=== PATIENT | male | born 1960 | race Caucasian/White ===

== ENCOUNTER → 2017-07-20 | Outpatient (CLI) | payer OTHER ==
[~2017-07-20] MED LIST: ASPEC325 PO; DOXY100C76 PO; HYDR2.5O TOP; INDO-22 PO; MELO7.5T5 PO; PRVHFAIN INH; SIMV20TA2 PO; TRAZ100T29 PO; ZNTT/150 PO
== END | disposition home or self-care (01) ==
LOC: C.LABSPEC 09:46
PROVIDERS: ATTEND Orthopaedic Surgery Sports Medicine
DX: T87.43 Infection of amputation stump, right lower extremity (principal); Y83.5 Amputation of limb(s) as the cause of abnormal reaction of the patient, or of later complication, without mention of misadventure at the time of the procedure

== ENCOUNTER 2017-08-12 10:38 | Inpatient (IN) | payer OTHER ==
[2017-08-08 09:35] VITALS: BMI 17.0
--- NOTE | 2017-08-08 10:12 | PAT Medication Instructions ---
Service Date Aug 08, 2017. Current Home Medication List Albuterol (Ventolin Hfa), 2 PUFF INH for prn Hydrocodone/Acetaminophen 10MG/325MG ([place] 10MG/325MG), 1-2 TABS PO Q6H PRN for Pain Indomethacin (Indocin), 25 MG PO for prn Ranitidine (Zantac), 150 MG PO DAILY PRN for prn Simvastatin (Zocor), 20 MG PO QPM Trazodone Hcl (Trazodone), 100 MG PO HS Medication Instructions For Your Scheduled Surgery - Hold the following medications the morning of surgery: Indomethacin (Indocin), 25 MG PO for prn - Take the following medications the morning of surgery with a sip of water: Albuterol (Ventolin Hfa), 2 PUFF INH for prn (use if needed; BRING TO HOSPITAL) Hydrocodone/Acetaminophen 10MG/325MG ([place] 10MG/325MG), 1-2 TABS PO Q6H PRN for Pain (may take if needed up to 4 hours prior to surgery) Ranitidine (Zantac), 150 MG PO DAILY PRN - Take the following medications as scheduled the night before surgery: Albuterol (Ventolin Hfa), 2 PUFF INH for prn Hydrocodone/Acetaminophen 10MG/325MG ([place] 10MG/325MG), 1-2 TABS PO Q6H PRN for Pain Simvastatin (Zocor), 20 MG PO QPM Trazodone Hcl (Trazodone), 100 MG PO HS If you have any questions please call us at [phone] or [phone] or [phone]
[2017-08-08 11:25] LABS: BASO % 0.4 %; BASO ABS # 0.03 K/uL (0-0.2); COMPLETE YES; EOS % 2.3 %; HEMATOCRIT 42.3 % (42-52); IG% 0.2 %; LYMPH % 33.6 %; LYMPH ABS # 2.81 K/uL (1.2-3.4); MEAN CELL VOLUME 87.4 fL (80-100); MEAN CORPUSCULAR HEMOGLOBIN 30.6 pg (25-34); MONO % 8.4 %; NEUT % 55.1 %; PLATELET COUNT 230 K/uL (130-400); RED BLOOD COUNT 4.84 M/uL (4.7-6.1); WHITE BLOOD COUNT 8.37 K/uL (4.8-10.8)
[2017-08-08 11:35] LABS: PARTIAL THROMBOPLASTIN RATIO 1.1; PROTHROMBIN TIME (PATIENT) 10.4 SECONDS (9.0-12.0)
[2017-08-08 11:39] LABS: BUN/CREATININE RATIO 14.4 (10-20); CALCIUM 9.1 mg/dl (8.5-10.1); CREATININE 0.73 mg/dl (0.60-1.40); POTASSIUM 4.6 mmol/L (3.5-5.1)
[2017-08-08 11:40] LABS: ESTIMATED AVERAGE GLUCOSE 117 mg/dl; HA1C FLAG Normal (Normal)
[2017-08-08 11:40] LABS: URINE APPEARANCE CLEAR (CLEAR); URINE BILIRUBIN NEG (NEG); URINE COLOR YELLOW; URINE EPITHELIAL CELL AUTO 0-5 /lpf (0-5); URINE NITRITE NEG (NEG); URINE SPECIFIC GRAVITY 1.017 (1.000-1.030); UROBILINOGEN NEG (NEG)
[2017-08-08 11:43] LABS: MANUAL MICROSCOPIC REQUIRED? NO; REVIEW REQ? NO
[~2017-08-12] VITALS: Ht 175.3 cm; Wt 54.1 kg
[2017-08-12] VITALS (7 sets, daily range): BP systolic 129–181; BP diastolic 70–91; PULSE 51–75; TEMP 36.6–37.3; O2SAT 93–96; Ht 175.3 cm; Wt 54.1 kg
--- NOTE | 2017-08-12 08:12 | History and Physical ---
History & Physical Date Aug 12, 2017. Chief Complaint Right BKA pain History of Present Illness The patient is a 56 year old male with complaints of right BKA pain and ulceration. He was treated conservatively but failed conservative management. An MRI noted changes in the distal tibia at the stump. He is now being set up for surgical tx. Past Medical/Surgical History Medical Problems: (1) Chronic osteomyelitis, lower leg Surgical Problems: (1) Below knee amputation status Allergies Coded Allergies: Bupropion (Unverified Allergy, Unknown, per PCP note , 08/08/17) CI Pigment Blue 63 (Unverified Allergy, Unknown, per PCP note , 08/08/17) Duloxetine (Unverified Allergy, Unknown, per PCP note , 08/08/17) Fentanyl (Unverified Allergy, Unknown, "turns skin black", 08/08/17) rash to fentanlyl patches Flu Virus Vaccine (Unverified Allergy, Unknown, per PCP note , 08/08/17) Fluoxetine (Unverified Allergy, Unknown, per PCP note , 08/08/17) Fluticasone (Unverified Allergy, Unknown, per PCP note , 07/13/16) Gabapentin (Unverified Allergy, Unknown, per PCP note , 07/13/16) Methylphenidate (Unverified Allergy, Unknown, per PCP note , 07/13/16) Morphine (Unverified Allergy, Unknown, rash on hands , 07/13/16) hand rash from pills Oxycodone (Unverified Allergy, Unknown, per PCP note , 07/13/16) Quetiapine (Unverified Allergy, Unknown, per PCP note , 07/13/16) Salmeterol (Unverified Allergy, Unknown, per PCP note , 07/13/16) Valproic Acid (Unverified Allergy, Unknown, per PCP note , 07/13/16) Venlafaxine (Unverified Allergy, Unknown, per PCP note , 07/13/16) Home Medications Scheduled Simvastatin (Zocor), 20 MG PO QPM Trazodone Hcl (Trazodone), 100 MG PO HS Scheduled PRN Albuterol (Ventolin Hfa), 2 PUFF INH for prn Hydrocodone/Acetaminophen 10MG/325MG ([place] 10MG/325MG), 1-2 TABS PO Q6H PRN for Pain Indomethacin (Indocin), 25 MG PO for prn Ranitidine (Zantac), 150 MG PO DAILY PRN for prn Physical Examination Skin: warm/dry, no rash, + pertinent finding (Right BKA stump ulceration) Eyes: normal inspection ENT: normal ENT inspection Head: normocephalic, atraumatic Neck: supple, no adenopathy, trachea midline Respiratory/Chest: lungs clear, normal breath sounds (Decreased breath sounds throughout), no respiratory distress Cardiovascular: regular rate, rhythm, no murmur Abdomen / GI: normal bowel sounds, non tender Extremities: + pertinent finding (Right BKA with ulceration and erythema. + Swelling. Tender to palpation.) Neurologic/Psych: alert, oriented x 3 Diagnosis Right BKA ulceration Right BKA osteomyelitis of the tibia Plan of Treatment Recommend an I & D of the right BKA, revision BKA with implantation of antibiotic laden Stimulan beads. All potential risks, benefits, complications, alternatives, and rehab have been discussed and he wishes to proceed. He will be scheduled for 08.12.17.
[~2017-08-12 10:38] MED LIST changes: -ASPEC325 PO; +CEFAZOLIN 2000MG IV PUSH 10 ML IV SCH; -DOXY100C76 PO; +HYDR-4079 PO; -HYDR2.5O TOP; +LACTATED RINGER'S 1000ML 1,000 ML IV SCH; -MELO7.5T5 PO
--- NOTE | 2017-08-12 11:29 | History & Physical Bridge Note ---
H&P Re-Evaluation Bridge Note: I have examined the patient, reviewed the History & Physical and in the interval since the performance of the History & Physical I have noted the following changes of clinical significance: No changes noted
[2017-08-12] MEDS ORDERED: PROPOFOL IV EMULSION 10 MG/ML 20 ML VIAL IV ONE (11:32)
[2017-08-12] MEDS ORDERED: MIDAZOLAM HCL 1 MG/ML 2ML VIAL ONE (11:32)
[2017-08-12] MEDS ORDERED: LIDOCAINE HCL 2% 2 ML VIAL (20MG/ML) ONE (11:32)
[2017-08-12] MEDS ORDERED: FENTANYL CITRATE INJ 50 MCG/1 ML 2 ML VIAL ONE ×2 (11:32→14:10)
[2017-08-12] MEDS ORDERED: DEXAMETHASONE SOD INJ 4 MG/ML VIAL ONE (11:32)
[2017-08-12] MEDS ORDERED: ONDANSETRON INJ 2 MG/ML 2 ML VIAL ONE (11:32)
[2017-08-12] MEDS ORDERED: EpHEDrine SULFATE INJ 50 MG/ML AMP IV PRN (12:15)
[2017-08-12] MEDS ORDERED: HYDROmorphone INJ 1 MG/ML SYR IV PRN (12:15)
[2017-08-12] MEDS ORDERED: ATROPINE SULFATE 0.1 MG/ML 5ML SYR IV PRN (12:15)
[2017-08-12] MEDS ORDERED: LABETALOL HCL IV 5 MG/ML 20ML IV PRN (12:15)
[2017-08-12] MEDS ORDERED: ONDANSETRON INJ 2 MG/ML 2 ML VIAL IV PRN ×2 (12:15→15:15)
[2017-08-12] MEDS ORDERED: PHENYLEPHRINE 100MCG/ML 5ML SYR IV PRN (12:15)
[2017-08-12] MEDS ORDERED: PROMETHAZINE HCL INJ 12.5 MG in SODIUM CHLORIDE 0.9% 50ML 50 ML IV PRN (12:15)
[2017-08-12] MEDS ORDERED: BUPIVACAINE 0.5 % 5 MG/1 ML MPF 30ML VIAL ONE (12:34)
[2017-08-12] MEDS ORDERED: VANCOMYCIN HCL 1000MG/20ML VIAL ONE (13:13)
[2017-08-12] MEDS ORDERED: GENTAMICIN SULFATE 40 MG/ML 2 ML VIAL ONE ×2 (13:16→13:20)
[2017-08-12] MEDS ORDERED: HYDROmorphone INJ 2 MG/ML SYR/VIAL ONE (13:42)
[2017-08-12] MEDS ORDERED: ESMOLOL HCL 10 MG/ML 10 ML VIAL ONE (15:00)
--- NOTE | 2017-08-12 15:06 | [facility] Post Operative Brief Note ---
Immediate Operative Summary Operative Date Aug 12, 2017. Pre-Operative Diagnosis Right AKA ulceration Right AKA osteomyelitis of the femur Post-Operative Diagnosis same as pre-operative Procedure(s) Performed 1. Right Knee Lower Extremity Revision Above the Knee Amputation; 2. Application Antibiotic Stimulan Beads 3. Debridement Ulcer Right LE Surgeon Dr. Roderick Lamb Medical Staff Manager Surgeon(s) SELENE Smith Estimated Blood Loss 5mL Findings See dict Specimens Culture Right lower extremity for gram stain, culture and sensitivity, anaerobic and aerobic Specimen A: Right Femur bone Drains HV x 2 Anesthesia GLMA w/ local Complication(s) None Disposition Recovery Room / PACU
[2017-08-12] MEDS ORDERED: INDOMETHACIN 25 MG CAP PO PRN (15:15)
[2017-08-12] MEDS ORDERED: ALBUTEROL HFA 8 GM INHALER INH PRN (15:15)
[2017-08-12] MEDS ORDERED: BISACODYL 10 MG SUPP PR PRN (15:15)
[2017-08-12] MEDS ORDERED: SOD PHOSPHATE/SOD BIPHOSPHATE ENEMA 132 ML BTL PR PRN (15:15)
[2017-08-12] MEDS ORDERED: ALUMINUM/MAGNESIUM/SIMETH (MAALOX MAX) 30 ML UDC PO PRN (15:15)
[2017-08-12] MEDS ORDERED: MAGNESIUM HYDROXIDE SUSP 30 ML UDC PO PRN (15:15)
[2017-08-12] MEDS ORDERED: ZOLPIDEM TARTRATE 5 MG TAB PO PRN (15:15)
[2017-08-12] MEDS ORDERED: RANITIDINE HCL 150 MG TAB PO PRN (15:15)
[2017-08-12] MEDS: FENTANYL CITRATE INJ 50 MCG/1 ML 2 ML VIAL IV PRN ×3 (15:20→16:10)
--- NOTE | 2017-08-12 16:47 | Anesthesiology Progress Note ---
Anesthesia Post Op Note Date & Time Aug 12, 2017 at 16:47 Vital Signs Pain Intensity: 2 Vital Signs Past 12 Hours Date Time Temp Pulse Resp B/P (MAP) Pulse Ox O2 Delivery O2 Flow Rate FiO2 08/12/17 16:30 73 22 174/87 96 Nasal Cannula 4 08/12/17 16:20 62 19 164/88 96 Nasal Cannula 4 08/12/17 16:10 72 21 175/97 9 Nasal Cannula 4 08/12/17 16:00 70 20 171/97 97 Nasal Cannula 4 08/12/17 15:50 80 17 158/96 97 Nasal Cannula 4 08/12/17 15:40 80 16 195/100 97 Oxymask 10 08/12/17 15:30 81 21 152/100 97 Oxymask 10 08/12/17 15:20 86 20 184/121 97 Oxymask 10 08/12/17 15:13 36.8 94 20 175/114 97 Oxymask 10 08/12/17 12:04 36.8 72 20 130/80 (97) 93 Room Air Notes Mental Status: alert / awake / arousable, participated in evaluation Pt Amnestic to Procedure: Yes Nausea / Vomiting: adequately controlled Pain: adequately controlled Airway Patency, RR, SpO2: stable & adequate BP & HR: stable & adequate Hydration State: stable & adequate Anesthetic Complications: no major complications apparent
[2017-08-12] MEDS: HYDROCODONE/ACETAMI 10/325 TAB PO PRN (17:11)
[2017-08-12] MEDS: HYDROmorphone INJ 1 MG/ML SYR IV PRN ×2 (17:35→20:18)
[2017-08-12] MEDS: D5W AND 1/2NSS + 20MEQ KCL 1,000 ML IV SCH (17:42)
[2017-08-12] MEDS: KETOROLAC TROMETHAMINE 30 MG/ML VIAL IV. SCH ×2 (17:42→23:25)
--- NOTE | 2017-08-12 19:25 | OPERATIVE REPORT ---
DATE OF OPERATION: 08/12/2017 PREOPERATIVE DIAGNOSES: 1. Right infected above knee amputation stump with ulceration. 2. Osteomyelitis of the right lower extremity, femur. POSTOPERATIVE DIAGNOSES: Same. PROCEDURE: 1. Revision right above knee amputation. 2. Debridement ulceration, right lower extremity. 3. Implantation antibiotic Stimulan beads. SURGEON: Dr. Lamb. DELIVERY NURSE: Keegan Nielson PA-C who was present for patient positioning, sterile prep and drape, management of retractors and instruments. He was present through the critical portions of the case including wound closure, application of sterile dressing and transport of the patient to recovery. ANESTHESIA: General LMA with local. SPECIMENS: Aerobic, anaerobic, Gram stain and residual right lower extremity bone and tissue. DRAINS: Hemovac x2. COMPLICATIONS: None. BLOOD LOSS: 5 mL. PERTINENT HISTORY: This is a 56-year-old gentleman who developed redness, pain, swelling and eventual ulceration of his right above knee amputation. He is ridden approximately over 300 miles on his [employer] with the prosthesis this summer and developed redness, swelling and an ulceration. Attempted conservative management with oral antibiotics over then began having drainage from the ulceration, eventually had an MRI which demonstrated osteomyelitis of the distal aspect of the right lower extremity above knee amputation distal femur. The patient is scheduled for surgery as indicated. All potential risks, benefits, complications, alternatives, rehab, potential for incomplete relief of symptoms, need for further surgery, DVT, PE, , persistent pain, swelling, scarring, weakness, neurovascular injury, wound complications, bone fracture, need for further amputation was discussed with the patient. The patient decided to proceed with the procedure as indicated. PROCEDURE: The patient was taken to the operative suite and placed supine on the operating room table. I reviewed the consent and identification, operative site, the patient was anesthetized, LMA was placed. The right lower extremity was then sterilely prepped and draped in usual fashion, elevated and a tourniquet was applied high on the right lower extremity. The limb was not exsanguinated; however, the tourniquet was inflated then to 350 mmHg. Next, a 10 blade scalpel was used to make an incision at the site of the prior incision at the above knee amputation site. This was a fish mouth incision which had ulceration and draining sinus on the lateral aspect of the distal AKA. There was noted to be stripping of the muscular tissue beneath the subcutaneous tissue and a prominent bone. It appeared the Bio-Tenodesis had been broken down. Next, the incision was deepened through subcutaneous tissue. The ulceration site was then sharply excised with a 10 blade scalpel. Next, the fascial tissue and periosteum at the distal aspect of the femur was then sharply incised and elevated. Appropriate rake retractors were placed to expose the distal femur. There was noted to be residual suture material which was then resected using a rongeur. There was noted to be softened bone of the distal aspect of the femur, this was sampled and sent for aerobic, anaerobic and Gram stain processing. Next, a sagittal saw was then used to resect the distal approximately 3 cm from the right distal femur and then the distal residual femur was then bevelled with the sagittal saw and then smoothed with a rasp. The wound was copiously irrigated with sterile normal saline until clear with bacitracin. Next, the tissues were explored and there was noted to be no abscess or fluid collections. The softened distal femur had been passed off as specimen and the remaining tissues were then debrided sharply with a 10 blade scalpel and then a rongeur. Healthy appearing tissue remained and since all sutures were removed and the prior myotenodesis had failed, there was decision made not to perform a secondary myotenodesis due to the inordinate risk of recurrent infection. Next, the Stimulan beads were then created, 5 mL pack with vancomycin and gentamicin. Next, the Stimulan beads were packed in the distal aspect of the femur and then the bead pouch distally. The deep periosteal tissue was then closed over the distal aspect of the femur with interrupted 0 Vicryl sutures. This was then followed by closure of deep soft tissue with #1 Vicryl sutures and then two 10-Kis[place] drains were then placed in the distal aspect of the right above knee amputation. Next, the dermis was then closed with buried interrupted 2-0 Vicryl and Stimulan beads were then placed in the next layer of tissue. This was then followed by closure of the skin with interrupted 3-0 nylon sutures. Next, the incision was then injected with 0.5% Marcaine plain. A sterile compressive dressing and Douglas wrap was then applied followed by release of the tourniquet. The patient was then awakened and taken to recovery in stable condition. I attest to the content of the Intraoperative Record and any orders documented therein. Any exception s are noted below.
[2017-08-12] MEDS: CEFAZOLIN IV 2,000 MG in SYRINGE 0 ML IV SCH (20:22)
[2017-08-12] MEDS: TRAZODONE HCL 100 MG TAB PO SCH (21:28)
[2017-08-12] MEDS: SIMVASTATIN 20 MG TAB PO SCH (21:28)
[2017-08-12] MEDS: DOXYCYCLINE HYCLATE 100 MG CAP PO SCH (21:29)
[2017-08-12] MEDS: ACETAMINOPHEN 500 MG TAB PO SCH (21:31)
[2017-08-12] MEDS: DOCUSATE SODIUM 100 MG CAP PO SCH (21:34)
[2017-08-12] MEDS: SENNA 8.6 MG TAB PO SCH (21:34)
[2017-08-13] MEDS: HYDROCODONE/ACETAMI 10/325 TAB PO PRN ×2 (01:20→19:15)
[2017-08-13] MEDS: D5W AND 1/2NSS + 20MEQ KCL 1,000 ML IV SCH ×2 (03:26→12:45)
[2017-08-13] MEDS: CEFAZOLIN IV 2,000 MG in SYRINGE 0 ML IV SCH ×3 (03:34→20:27)
[2017-08-13 03:50] VITALS: BP 150/72; PULSE 56; TEMP 36.9; O2SAT 95
[2017-08-13] MEDS: KETOROLAC TROMETHAMINE 30 MG/ML VIAL IV. SCH ×4 (05:32→23:31)
[2017-08-13] MEDS: HYDROmorphone INJ 1 MG/ML SYR IV PRN ×4 (05:33→15:47)
[2017-08-13] MEDS: ACETAMINOPHEN 500 MG TAB PO SCH ×3 (05:33→21:36)
[2017-08-13 07:04] VITALS: BP 148/81; PULSE 53; TEMP 36.9; O2SAT 96
[2017-08-13 07:34] LABS: HEMATOCRIT 37.2 % (42-52); MEAN CELL VOLUME 87.7 fL (80-100); MEAN CORPUSCULAR HGB CONC 34.1 g/dl (32-36); PLATELET COUNT 184 K/uL (130-400); RED BLOOD COUNT 4.24 M/uL (4.7-6.1); WHITE BLOOD COUNT 12.19 K/uL (4.8-10.8)
[2017-08-13 08:04] LABS: BUN/CREATININE RATIO 12.8 (10-20); CALCIUM 8.6 mg/dl (8.5-10.1); CREATININE 0.83 mg/dl (0.60-1.40); POTASSIUM 4.3 mmol/L (3.5-5.1)
[2017-08-13] MEDS: DOCUSATE SODIUM 100 MG CAP PO SCH ×2 (09:00→20:31)
--- NOTE | 2017-08-13 09:27 | Orthopedic Progress Note ---
Orthopedic Progress Note Date of Service Aug 13, 2017. Subjective Reports: feeling well, Denies: complaints Additional Notes: Patient seen this morning, comfortable, pain controlled, no acute issues, denies complaints. Objective NAD, AOx3 RLE: s/p AKA dressing clean, dry, intact, compartments soft, drain intact, 10CC output overnight. Date Time Temp Pulse Resp B/P (MAP) Pulse Ox O2 Delivery O2 Flow Rate FiO2 08/13/17 07:04 36.9 53 18 148/81 (103) 96 Room Air 08/13/17 03:50 36.9 56 18 150/72 (98) 95 Room Air 08/12/17 23:32 37.3 51 16 129/70 (89) 94 Room Air 08/12/17 23:25 Room Air 08/12/17 20:00 36.9 64 20 159/83 (108) 93 Room Air 08/12/17 19:01 36.6 64 18 156/78 (104) 95 Room Air 08/12/17 18:00 37.0 75 18 175/91 (119) 94 Nasal Cannula 2.0 75 08/12/17 18:00 95 Room Air 08/12/17 17:30 37.0 62 20 181/90 (120) 95 Nasal Cannula 2.0 08/12/17 17:00 Nasal Cannula 4.0 08/12/17 17:00 36.9 74 20 178/87 (117) 96 Nasal Cannula 4.0 08/12/17 17:00 Nasal Cannula 4.0 08/12/17 16:51 36.7 67 22 164/87 96 Nasal Cannula 4 08/12/17 16:30 73 22 174/87 96 Nasal Cannula 4 08/12/17 16:20 62 19 164/88 96 Nasal Cannula 4 08/12/17 16:10 72 21 175/97 9 Nasal Cannula 4 08/12/17 16:00 70 20 171/97 97 Nasal Cannula 4 08/12/17 15:50 80 17 158/96 97 Nasal Cannula 4 08/12/17 15:40 80 16 195/100 97 Oxymask 10 08/12/17 15:30 81 21 152/100 97 Oxymask 10 08/12/17 15:20 86 20 184/121 97 Oxymask 10 08/12/17 15:13 36.8 94 20 175/114 97 Oxymask 10 08/12/17 12:04 36.8 72 20 130/80 (97) 93 Room Air Laboratory Results 24 Hours: Test 08/13/17 07:15 Hematocrit 37.2 % Hemoglobin 12.7 g/dL Assessment & Plan Assessment: s/p AKA revision POD#1 Plan: -ID consulted for recs, IV abx as outpatient -Picc line consult, consent in chart -Maintain drain - 10cc overnight -Maintain dressing -IV abx - ancef -Pain controlled -AM labs - Hgb 12.7 -Follow up GS, cultures -DC planing, home with IV abx 08/14/17
[2017-08-13] MEDS ORDERED: CEFAZOLIN IV 2,000 MG in DEXTROSE 5% 50ML 50 ML IV SCH (09:30)
[2017-08-13] MEDS: PANTOprazole SOD 40 MG TAB PO SCH (09:30)
[2017-08-13] MEDS: MULTIVITAMIN TAB PO SCH (09:30)
[2017-08-13] MEDS: DOXYCYCLINE HYCLATE 100 MG CAP PO SCH ×2 (09:30→20:28)
--- NOTE | 2017-08-13 10:06 | History and Physical ---
History & Physical Date & Time of Service: Aug 13, 2017 at 10:05 Chief Complaint: Right Knee Osteomyelitis, Other Complications Of A Primary Care Physician: Rey Simon D.O. History of Present Illness Source: patient Social History Smoking Status: Current Every Day Smoker Allergies Coded Allergies: Bupropion (Verified Allergy, Unknown, per PCP note , 08/12/17) CI Pigment Blue 63 (Verified Allergy, Unknown, per PCP note , 08/12/17) Duloxetine (Verified Allergy, Unknown, per PCP note , 08/12/17) Fentanyl (Verified Allergy, Unknown, "turns skin black", 08/12/17) rash to fentanlyl patches Flu Virus Vaccine (Verified Allergy, Unknown, per PCP note , 08/12/17) Fluoxetine (Verified Allergy, Unknown, per PCP note , 08/12/17) Fluticasone (Verified Allergy, Unknown, per PCP note , 08/12/17) Gabapentin (Verified Allergy, Unknown, per PCP note , 08/12/17) Methylphenidate (Verified Allergy, Unknown, per PCP note , 08/12/17) Morphine (Verified Allergy, Unknown, rash on hands , 08/12/17) hand rash from pills/ "stiffens up if on more than a couple days- weakens muscles Oxycodone (Verified Allergy, Unknown, per PCP note , 08/12/17) Quetiapine (Verified Allergy, Unknown, per PCP note , 08/12/17) Salmeterol (Verified Allergy, Unknown, per PCP note , 08/12/17) Valproic Acid (Verified Allergy, Unknown, per PCP note , 08/12/17) Venlafaxine (Verified Allergy, Unknown, per PCP note , 08/12/17) Home Medications Scheduled Simvastatin (Zocor), 20 MG PO QPM Trazodone Hcl (Trazodone), 100 MG PO HS Scheduled PRN Albuterol (Ventolin Hfa), 2 PUFF INH for prn Hydrocodone/Acetaminophen 10MG/325MG ([place] 10MG/325MG), 1-2 TABS PO Q6H PRN for Pain Indomethacin (Indocin), 25 MG PO for prn Ranitidine (Zantac), 150 MG PO DAILY PRN for prn Physical Exam Vital Signs Date Time Temp Pulse Resp B/P (MAP) Pulse Ox O2 Delivery O2 Flow Rate FiO2 08/13/17 07:04 36.9 53 18 148/81 (103) 96 Room Air 08/13/17 03:50 36.9 56 18 150/72 (98) 95 Room Air 08/12/17 23:32 37.3 51 16 129/70 (89) 94 Room Air 08/12/17 23:25 Room Air 08/12/17 20:00 36.9 64 20 159/83 (108) 93 Room Air 08/12/17 19:01 36.6 64 18 156/78 (104) 95 Room Air 08/12/17 18:00 37.0 75 18 175/91 (119) 94 Nasal Cannula 2.0 75 08/12/17 18:00 95 Room Air 08/12/17 17:30 37.0 62 20 181/90 (120) 95 Nasal Cannula 2.0 08/12/17 17:00 Nasal Cannula 4.0 08/12/17 17:00 36.9 74 20 178/87 (117) 96 Nasal Cannula 4.0 08/12/17 17:00 Nasal Cannula 4.0 08/12/17 16:51 36.7 67 22 164/87 96 Nasal Cannula 4 08/12/17 16:30 73 22 174/87 96 Nasal Cannula 4 08/12/17 16:20 62 19 164/88 96 Nasal Cannula 4 08/12/17 16:10 72 21 175/97 9 Nasal Cannula 4 08/12/17 16:00 70 20 171/97 97 Nasal Cannula 4 08/12/17 15:50 80 17 158/96 97 Nasal Cannula 4 08/12/17 15:40 80 16 195/100 97 Oxymask 10 08/12/17 15:30 81 21 152/100 97 Oxymask 10 08/12/17 15:20 86 20 184/121 97 Oxymask 10 08/12/17 15:13 36.8 94 20 175/114 97 Oxymask 10 08/12/17 12:04 36.8 72 20 130/80 (97) 93 Room Air Diagnostics Laboratory Results Results Past 24 Hours Test 08/13/17 07:15 Range/Units White Blood Count 12.19 4.8-10.8 K/uL Red Blood Count 4.24 4.7-6.1 M/uL Hemoglobin 12.7 14.0-18.0 g/dL Hematocrit 37.2 42-52 % Mean Corpuscular Volume 87.7 80-100 fL Mean Corpuscular Hemoglobin 30.0 25-34 pg Mean Corpuscular Hemoglobin Concent 34.1 32-36 g/dl RDW Standard Deviation 41.1 36.4-46.3 fL RDW Coefficient of Variation 12.8 11.5-14.5 % Platelet Count 184 130-400 K/uL Mean Platelet Volume 9.0 7.4-10.4 fL Sodium Level 138 136-145 mmol/L Potassium Level 4.3 3.5-5.1 mmol/L Chloride Level 103 98-107 mmol/L Carbon Dioxide Level 31 21-32 mmol/L Anion Gap 4.0 3-11 mmol/L Blood Urea Nitrogen 11 7-18 mg/dl Creatinine 0.83 0.60-1.40 mg/dl Est Creatinine Clear Calc Drug Dose 75.1 ml/min Estimated GFR () 113.2 Estimated GFR (Non- 97.7 BUN/Creatinine Ratio 12.8 10-20 Random Glucose 131 70-99 mg/dl Calcium Level 8.6 8.5-10.1 mg/dl Microbiology Results 08/12/17 Gram Stain, Received Pending 08/12/17 Bacterial Culture, Received Pending Impression VTE Prophylaxis VTE Risk Assessment Done? Y/N: Yes Risk Level: Moderate
[2017-08-13 11:36] VITALS: BP 139/79; PULSE 49; TEMP 37.1; O2SAT 94
--- NOTE | 2017-08-13 12:37 | Medical Consult ---
Consultation Date of Consultation: Aug 13, 2017. Attending Physician: Roderick Lamb D.O. Reason for Consultation: Medical Management and Tick Bite/Removal History of Present Illness Mr. Lutz is a 56 y/o male with PMHx of COPD, GERD, HLD, and R AKA who is S/P RLE Revision and Debridement from Unhealing Ulceration. Patient reports crushing is R foot in 1993 and has since dealt with infection requiring amputation. He has had multiple Abx in the past for osteomyelitis. He most recently finished a course of Keflex x 10 days. He currently reports well controlled pain and is mobilizing with ease. He states he maintains his COPD with PRN Albuterol but reports he continues to smoke but has cut back. He reports approx. 2-3 week ago he had a tick removed from his back and was treated with Doxycycline 200 mg x 1 dose. On transfer to surgery, another tick was found but he was not able to give details of this. It appears he may have had one on his back. There is a healing scab on his R mid-back but a spot on his L mid-lower back that looks rather new. No bullseye rash, no flu-like symptoms, no headaches, no muscle aches, no fever/chills. He does report having Lyme disease in the past. Past Medical/Surgical History 1. COPD 2. GERD 3. HLD 4. Traumatic Injury to RLE 5. Chronic Osteomyelitis 6. S/P R AKA Family History Patient reports no known family medical history. Social History Smoking Status: Current Every Day Smoker Smokeless Tobacco Use: No Allergies Coded Allergies: Bupropion (Verified Allergy, Unknown, per PCP note , 08/12/17) CI Pigment Blue 63 (Verified Allergy, Unknown, per PCP note , 08/12/17) Duloxetine (Verified Allergy, Unknown, per PCP note , 08/12/17) Fentanyl (Verified Allergy, Unknown, "turns skin black", 08/12/17) rash to fentanlyl patches Flu Virus Vaccine (Verified Allergy, Unknown, per PCP note , 08/12/17) Fluoxetine (Verified Allergy, Unknown, per PCP note , 08/12/17) Fluticasone (Verified Allergy, Unknown, per PCP note , 08/12/17) Gabapentin (Verified Allergy, Unknown, per PCP note , 08/12/17) Methylphenidate (Verified Allergy, Unknown, per PCP note , 08/12/17) Morphine (Verified Allergy, Unknown, rash on hands , 08/12/17) hand rash from pills/ "stiffens up if on more than a couple days- weakens muscles Oxycodone (Verified Allergy, Unknown, per PCP note , 08/12/17) Quetiapine (Verified Allergy, Unknown, per PCP note , 08/12/17) Salmeterol (Verified Allergy, Unknown, per PCP note , 08/12/17) Valproic Acid (Verified Allergy, Unknown, per PCP note , 08/12/17) Venlafaxine (Verified Allergy, Unknown, per PCP note , 08/12/17) Current Inpatient Medications Current Inpatient Medications Medications (Trade) Dose Ordered Sig/Nancy Route Start Time Stop Time Status Last Admin Dose Admin Albuterol (Ventolin Hfa Inhaler) 2 puffs Q4 PRN INH 08/12/17 15:15 09/11/17 15:14 Indomethacin (Indocin Cap) 25 mg BID PRN PO 08/12/17 15:15 09/11/17 15:14 Ranitidine HCl (zANTac TAB) 150 mg DAILY PRN PO 08/12/17 15:15 09/11/17 15:14 08/12/17 22:12 150 MG Simvastatin (Zocor Tab) 20 mg QPM PO 08/12/17 21:00 09/11/17 20:59 08/12/17 21:28 20 MG Trazodone HCl (Desyrel Tab) 100 mg HS PO 08/12/17 21:00 09/11/17 20:59 08/12/17 21:28 100 MG Potassium Chloride/Dextrose/ Sod Cl 1,000 ml @ 100 mls/hr Q10H IV 08/12/17 17:45 09/11/17 17:44 08/13/17 03:26 100 MLS/HR Ketorolac Tromethamine (Toradol Inj) 30 mg Q6 IV. 08/12/17 18:00 08/14/17 17:59 08/13/17 05:32 30 MG Acetaminophen (Tylenol Tab) 1,000 mg Q8 PO 08/12/17 22:00 09/11/17 21:59 08/13/17 05:33 1,000 MG Magnesium Hydroxide (Milk Of Magnesia Susp) 30 ml Q6H PRN PO 08/12/17 15:15 09/11/17 15:14 Bisacodyl (Dulcolax Supp) 10 mg DAILY PRN [place] 08/12/17 15:15 09/11/17 15:14 Sodium Biphosphate/ Sodium Phosphate (Fleet Enema) 132 ml DAILY PRN [place] 08/12/17 15:15 09/11/17 15:14 Senna (Senokot Tab) 17.2 mg HS PO 08/12/17 21:00 09/11/17 20:59 Docusate Sodium (coLACE CAP) 100 mg BID PO 08/12/17 21:00 09/11/17 20:59 Diphenhydramine HCl (Benadryl Cap) 25 mg Q8H PRN PO 08/12/17 15:15 09/11/17 15:14 Al Hydrox/Mg Hydrox/Simethicone (Maalox Max Susp) 15 ml Q4H PRN PO 08/12/17 15:15 09/11/17 15:14 Zolpidem Tartrate (Ambien Tab) 5 mg HSZ PRN PO 08/12/17 15:15 09/11/17 15:14 Multivitamins (Multivitamin Tab) 1 tab QAM PO 08/13/17 09:00 09/12/17 08:59 08/13/17 09:30 1 TAB Ondansetron HCl (Zofran Inj) 4 mg Q6H PRN IV 08/12/17 15:15 09/11/17 15:14 Pantoprazole Sodium (Protonix Tab) 40 mg QAM PO 08/13/17 09:00 09/12/17 08:59 08/13/17 09:30 40 MG Doxycycline Hyclate (Vibramycin Cap) 100 mg BID PO 08/12/17 21:00 08/22/17 20:59 08/13/17 09:30 100 MG Hydromorphone HCl (Dilaudid Inj) 1 mg Q1HWA PRN IV 08/12/17 15:15 08/26/17 15:14 08/13/17 09:45 1 MG Acetaminophen/ Hydrocodone Bitart ([place] 10/325 Tab) 1 tab for pain rated 1-5 2 t... Q6 PRN PO 08/12/17 15:15 08/26/17 15:14 08/13/17 01:20 2 TAB Cefazolin Sodium 2000 mg/Syringe 10 ml @ 2.5 mls/min Q8H IV 08/13/17 12:00 08/15/17 11:59 Review of Systems Constitutional: No fever, No chills, No weakness, No fatigue ENT: No nasal symptoms, No sore throat, No trouble swallowing Respiratory: No cough, No shortness of breath Cardiovascular: No chest pain, No palpitations Abdomen: No pain, No nausea, No vomiting, No diarrhea, No constipation Musculoskeletal: No joint pain, No muscle pain Genitourinary - Male: No dysuria Hematologic / Lymphatic: No abnormal bleeding/bruising, No clotting problems Integumentary: No rash Physical Exam Date Time Temp Pulse Resp B/P (MAP) Pulse Ox O2 Delivery O2 Flow Rate FiO2 08/13/17 11:36 37.1 49 18 139/79 (99) 94 Room Air 08/13/17 08:00 Room Air 08/13/17 07:04 36.9 53 18 148/81 (103) 96 Room Air 08/13/17 03:50 36.9 56 18 150/72 (98) 95 Room Air 08/12/17 23:32 37.3 51 16 129/70 (89) 94 Room Air 08/12/17 23:25 Room Air 08/12/17 20:00 36.9 64 20 159/83 (108) 93 Room Air 08/12/17 19:01 36.6 64 18 156/78 (104) 95 Room Air 08/12/17 18:00 37.0 75 18 175/91 (119) 94 Nasal Cannula 2.0 75 08/12/17 18:00 95 Room Air 08/12/17 17:30 37.0 62 20 181/90 (120) 95 Nasal Cannula 2.0 08/12/17 17:00 Nasal Cannula 4.0 08/12/17 17:00 36.9 74 20 178/87 (117) 96 Nasal Cannula 4.0 08/12/17 17:00 Nasal Cannula 4.0 08/12/17 16:51 36.7 67 22 164/87 96 Nasal Cannula 4 08/12/17 16:30 73 22 174/87 96 Nasal Cannula 4 08/12/17 16:20 62 19 164/88 96 Nasal Cannula 4 08/12/17 16:10 72 21 175/97 9 Nasal Cannula 4 08/12/17 16:00 70 20 171/97 97 Nasal Cannula 4 08/12/17 15:50 80 17 158/96 97 Nasal Cannula 4 08/12/17 15:40 80 16 195/100 97 Oxymask 10 08/12/17 15:30 81 21 152/100 97 Oxymask 10 08/12/17 15:20 86 20 184/121 97 Oxymask 10 08/12/17 15:13 36.8 94 20 175/114 97 Oxymask 10 General Appearance: WD/WN, no apparent distress, + thin Head: normocephalic, atraumatic Eyes: sclerae normal ENT: hearing grossly normal Neck: supple, no JVD, trachea midline Respiratory/Chest: no respiratory distress, no accessory muscle use, + wheezing Cardiovascular: regular rate, rhythm, no gallop, no murmur Abdomen/GI: normal bowel sounds, non tender, soft Back: + pertinent finding (small erythematous, unraised lesion with scab of R mid back; small erythematous unraised lesion of L mid-lower back) Extremities/Musculoskelatal: + pertinent finding (R AKA stump with ASTNO bandage C/D/I; drain with bloody drainage) Neurologic/Psych: alert, oriented x 3 Skin: normal color, warm/dry, + pertinent finding (no bullseye rash) Laboratory Results Last 24 Hours Test 08/13/17 07:15 White Blood Count 12.19 K/uL Red Blood Count 4.24 M/uL Hemoglobin 12.7 g/dL Hematocrit 37.2 % Mean Corpuscular Volume 87.7 fL Mean Corpuscular Hemoglobin 30.0 pg Mean Corpuscular Hemoglobin Concent 34.1 g/dl RDW Standard Deviation 41.1 fL RDW Coefficient of Variation 12.8 % Platelet Count 184 K/uL Mean Platelet Volume 9.0 fL Sodium Level 138 mmol/L Potassium Level 4.3 mmol/L Chloride Level 103 mmol/L Carbon Dioxide Level 31 mmol/L Anion Gap 4.0 mmol/L Blood Urea Nitrogen 11 mg/dl Creatinine 0.83 mg/dl Est Creatinine Clear Calc Drug Dose 75.1 ml/min Estimated GFR () 113.2 Estimated GFR (Non- 97.7 BUN/Creatinine Ratio 12.8 Random Glucose 131 mg/dl Calcium Level 8.6 mg/dl Assessment & Plan Mr. Lutz is a 56 y/o male with PMHx of COPD, GERD, HLD, and R AKA who is S/P RLE Revision and Debridement. S/P R AKA Revision and Debridement: - Pain Management, PT/OT, IVF, DVT Prophylaxis per primary team - Consulted ID for long-term antibiotics Tick Bite: - Reporting a tick bite and treatment with Doxycycline 200 mg x 1 dose by PCP - Patient on Doxycycline 100 mg BID in-hospital - if this is for MRSA coverage can continue but for Lyme prevention, could utilize 200 mg x 1 dose and D/C vs may not need to cover - Unsure of length of attachment or engorgement - Educated patient on S/S of Lyme and would recommend PCP follow-up if symptoms develop COPD without Exacerbation: - Ventolin 2 puffs Q4H PRN - Encouraged smoking cessation GERD: - States only gets symptoms when on ABx and utilized PRN - Zantac 150 mg daily PRN HLD: - Simvastatin 20 mg daily Gout: - Indomethacin 25 mg BID PRN Insomnia: - Trazadone 100 mg daily Disposition: - Recommend monitoring for S/S of Lyme and PCP follow-up - Can continue Doxycycline for MRSA coverage if necessary - if wanting prophylaxtic treatment can utilize 200 mg x 1 dose or continue to monitor Attending Consult Note & Attestation: Pt seen/examined, chart reviewed, care plan d/w SELENE Ley. I agree w/ the allison components of her consult documentation. Pleasant 56yo male with pre-existing right-sided AKA who underwent AKA revision and debridement of ulceration by Dr. Lamb. Details of his recent tick exposure - see Av's excellent documentation above. During my visit - denied dyspnea, cp, abd pain, fevers. c/o pain in right leg stump. PMH, PSH, allergies, meds, sochx, famhx, ros - reviewed Afebrile, VSS gen - nad, thin mouth - no thrush, MMM neck - no JVD heart - RRR, s1, s2 lungs - CTA b/l abd - soft, NT, ND, BS+ ext - right AKA in large ASTON dressing; left leg - no edema, pulses 2+ skin - no rashes A/P: 1. s/p right AKA revision 2. recent tick bite(s) without symptoms/signs of tick-borne illness 3. tobacco dependence - counseling services director to quit 4. FEN - IVF can be discontinued - well-hydrated, drinking well 5. antibiotic bead insertion - risk of hypercalcemia - recheck BMP/calcium in AM 6. defer IV abx selection to ID Hardik Mejia MD
[2017-08-13 15:40] VITALS: BP 154/84; PULSE 61; TEMP 37; O2SAT 95
--- NOTE | 2017-08-13 16:43 | Medical Consult ---
Consultation Date of Consultation: Aug 13, 2017. Attending Physician: Roderick Lamb D.O. Reason for Consultation: Revision AKA with infection, recommend home op antibiotics. History of Present Illness 56-year-old male with history of COPD, hyperlipidemia, and GERD, who suffered crush injury to his right foot in 1993 ultimately leading to amputation. He has had multiple infections, further surgeries, and courses of antibiotics. these eventually that to AKA, and patient has been suffering from chronic ulceration of the AKA site. He recently received a course of cephalexin, has noted no improvement. he underwent MRI scanning, reviewed by me, shows evidence of osteomyelitis of the distal femur. He was readmitted and has now undergone surgical debridement of infected bone and revision of AKA site. Operative Gram stain negative, cultures are pending. Patient currently being treated with cefazolin. Patient also noted several tick bites recently, but has not had any significant rash, fever, chills, myalgias, or arthralgias, Past Medical/Surgical History Medical Problems: (1) Chronic osteomyelitis, lower leg Surgical Problems: (1) Below knee amputation status Family History Patient reports no known family medical history. Social History Smoking Status: Current Every Day Smoker Smokeless Tobacco Use: No Allergies Coded Allergies: Bupropion (Verified Allergy, Unknown, per PCP note , 08/12/17) CI Pigment Blue 63 (Verified Allergy, Unknown, per PCP note , 08/12/17) Duloxetine (Verified Allergy, Unknown, per PCP note , 08/12/17) Fentanyl (Verified Allergy, Unknown, "turns skin black", 08/12/17) rash to fentanlyl patches Flu Virus Vaccine (Verified Allergy, Unknown, per PCP note , 08/12/17) Fluoxetine (Verified Allergy, Unknown, per PCP note , 08/12/17) Fluticasone (Verified Allergy, Unknown, per PCP note , 08/12/17) Gabapentin (Verified Allergy, Unknown, per PCP note , 08/12/17) Methylphenidate (Verified Allergy, Unknown, per PCP note , 08/12/17) Morphine (Verified Allergy, Unknown, rash on hands , 08/12/17) hand rash from pills/ "stiffens up if on more than a couple days- weakens muscles Oxycodone (Verified Allergy, Unknown, per PCP note , 08/12/17) Quetiapine (Verified Allergy, Unknown, per PCP note , 08/12/17) Salmeterol (Verified Allergy, Unknown, per PCP note , 08/12/17) Valproic Acid (Verified Allergy, Unknown, per PCP note , 08/12/17) Venlafaxine (Verified Allergy, Unknown, per PCP note , 08/12/17) Current Inpatient Medications Current Inpatient Medications Medications (Trade) Dose Ordered Sig/Nancy Route Start Time Stop Time Status Last Admin Dose Admin Albuterol (Ventolin Hfa Inhaler) 2 puffs Q4 PRN INH 08/12/17 15:15 09/11/17 15:14 Indomethacin (Indocin Cap) 25 mg BID PRN PO 08/12/17 15:15 09/11/17 15:14 Ranitidine HCl (zANTac TAB) 150 mg DAILY PRN PO 08/12/17 15:15 09/11/17 15:14 08/12/17 22:12 150 MG Simvastatin (Zocor Tab) 20 mg QPM PO 08/12/17 21:00 09/11/17 20:59 08/12/17 21:28 20 MG Trazodone HCl (Desyrel Tab) 100 mg HS PO 08/12/17 21:00 09/11/17 20:59 08/12/17 21:28 100 MG Potassium Chloride/Dextrose/ Sod Cl 1,000 ml @ 100 mls/hr Q10H IV 08/12/17 17:45 09/11/17 17:44 08/13/17 12:45 100 MLS/HR Ketorolac Tromethamine (Toradol Inj) 30 mg Q6 IV. 08/12/17 18:00 08/14/17 17:59 08/13/17 12:45 30 MG Acetaminophen (Tylenol Tab) 1,000 mg Q8 PO 08/12/17 22:00 09/11/17 21:59 08/13/17 05:33 1,000 MG Magnesium Hydroxide (Milk Of Magnesia Susp) 30 ml Q6H PRN PO 08/12/17 15:15 09/11/17 15:14 Bisacodyl (Dulcolax Supp) 10 mg DAILY PRN [place] 08/12/17 15:15 09/11/17 15:14 Sodium Biphosphate/ Sodium Phosphate (Fleet Enema) 132 ml DAILY PRN [place] 08/12/17 15:15 09/11/17 15:14 Senna (Senokot Tab) 17.2 mg HS PO 08/12/17 21:00 09/11/17 20:59 Docusate Sodium (coLACE CAP) 100 mg BID PO 08/12/17 21:00 09/11/17 20:59 Diphenhydramine HCl (Benadryl Cap) 25 mg Q8H PRN PO 08/12/17 15:15 09/11/17 15:14 Al Hydrox/Mg Hydrox/Simethicone (Maalox Max Susp) 15 ml Q4H PRN PO 08/12/17 15:15 09/11/17 15:14 Zolpidem Tartrate (Ambien Tab) 5 mg HSZ PRN PO 08/12/17 15:15 09/11/17 15:14 Multivitamins (Multivitamin Tab) 1 tab QAM PO 08/13/17 09:00 09/12/17 08:59 08/13/17 09:30 1 TAB Ondansetron HCl (Zofran Inj) 4 mg Q6H PRN IV 08/12/17 15:15 09/11/17 15:14 Pantoprazole Sodium (Protonix Tab) 40 mg QAM PO 08/13/17 09:00 09/12/17 08:59 08/13/17 09:30 40 MG Doxycycline Hyclate (Vibramycin Cap) 100 mg BID PO 08/12/17 21:00 08/22/17 20:59 08/13/17 09:30 100 MG Hydromorphone HCl (Dilaudid Inj) 1 mg Q1HWA PRN IV 08/12/17 15:15 08/26/17 15:14 08/13/17 15:47 1 MG Acetaminophen/ Hydrocodone Bitart ([place] 10/325 Tab) 1 tab for pain rated 1-5 2 t... Q6 PRN PO 08/12/17 15:15 08/26/17 15:14 08/13/17 01:20 2 TAB Cefazolin Sodium 2000 mg/Syringe 10 ml @ 2.5 mls/min Q8H IV 08/13/17 12:00 08/15/17 11:59 08/13/17 12:45 2.5 MLS/MIN Review of Systems all systems were reviewed and are negative except as per HPI Physical Exam Date Time Temp Pulse Resp B/P (MAP) Pulse Ox O2 Delivery O2 Flow Rate FiO2 08/13/17 15:40 37.0 61 18 154/84 (107) 95 Room Air 08/13/17 11:36 37.1 49 18 139/79 (99) 94 Room Air 08/13/17 08:00 Room Air 08/13/17 07:04 36.9 53 18 148/81 (103) 96 Room Air 08/13/17 03:50 36.9 56 18 150/72 (98) 95 Room Air 08/12/17 23:32 37.3 51 16 129/70 (89) 94 Room Air 08/12/17 23:25 Room Air 08/12/17 20:00 36.9 64 20 159/83 (108) 93 Room Air 08/12/17 19:01 36.6 64 18 156/78 (104) 95 Room Air 08/12/17 18:00 37.0 75 18 175/91 (119) 94 Nasal Cannula 2.0 75 08/12/17 18:00 95 Room Air 08/12/17 17:30 37.0 62 20 181/90 (120) 95 Nasal Cannula 2.0 08/12/17 17:00 Nasal Cannula 4.0 08/12/17 17:00 36.9 74 20 178/87 (117) 96 Nasal Cannula 4.0 08/12/17 17:00 Nasal Cannula 4.0 08/12/17 16:51 36.7 67 22 164/87 96 Nasal Cannula 4 General Appearance: WD/WN, no apparent distress Head: normocephalic, atraumatic Eyes: normal inspection, EOMI, sclerae normal ENT: normal ENT inspection, hearing grossly normal, pharynx normal Neck: supple, no adenopathy, thyroid normal, trachea midline Respiratory/Chest: chest non-tender, lungs clear, normal breath sounds, no respiratory distress Cardiovascular: regular rate, rhythm, no gallop, no murmur Abdomen/GI: normal bowel sounds, non tender, soft, no organomegaly Back: normal inspection, no CVA tenderness Extremities/Musculoskelatal: no calf tenderness, normal capillary refill Neurologic/Psych: alert, normal mood/affect, oriented x 3 Skin: normal color, warm/dry, no rash, + pertinent finding ( surgical dressing intact) Lymphatic: no adenopathy Laboratory Results RUN DATE: 08/13/17 [facility] LAB PAGE 1 RUN TIME: 9576 Specimen Inquiry PATIENT: ESTHER WALTON LOC: W U # : [id number] AGE/SX: 56/M ROOM: [facility] REG : 08/12/[address]: Roderick Lamb D.O. : 1960 BED: 1 DIS : STATUS: ADM IN TLOC: SPEC #: [id number] MIGUELINA: 08/12/17 STATUS: RES REQ #: [id number] RECD: 08/12/17-[address]: Roderick Lamb D.O. SOURCE: ASP-OTHER ENTR: 08/12/17-[address]: Rey Simon D.O. SPDESC: LEG RL ORDERED: AER/MAGDALENA CULTSMR Procedure Result Verified Site GRAM STAIN Final 08/13/17-1043 RESULT RARE WBCs SEEN NO ORGANISMS SEEN OR AER/MAGDALENA CULT Preliminary 08/13/17-145 NO GROWTH TO DATE. Last 24 Hours Test 08/13/17 07:15 White Blood Count 12.19 K/uL Red Blood Count 4.24 M/uL Hemoglobin 12.7 g/dL Hematocrit 37.2 % Mean Corpuscular Volume 87.7 fL Mean Corpuscular Hemoglobin 30.0 pg Mean Corpuscular Hemoglobin Concent 34.1 g/dl RDW Standard Deviation 41.1 fL RDW Coefficient of Variation 12.8 % Platelet Count 184 K/uL Mean Platelet Volume 9.0 fL Sodium Level 138 mmol/L Potassium Level 4.3 mmol/L Chloride Level 103 mmol/L Carbon Dioxide Level 31 mmol/L Anion Gap 4.0 mmol/L Blood Urea Nitrogen 11 mg/dl Creatinine 0.83 mg/dl Est Creatinine Clear Calc Drug Dose 75.1 ml/min Estimated GFR () 113.2 Estimated GFR (Non- 97.7 BUN/Creatinine Ratio 12.8 Random Glucose 131 mg/dl Calcium Level 8.6 mg/dl Assessment & Plan 56 yo male with chronic osteomyelitis of distal right femur as well as non- healing ulceration of AKA stump now s/p debridement of infected bone and stump revision and placement of antibiotic beads. Choice of antibiotics complicated by negative cultures. Pending above, would consider use of daptomycin 6 mg/kg daily with ertapenem 1 gram daily which would allow for easiest outpatient therapy and cover most potential pathogens.
[2017-08-13] MEDS: SIMVASTATIN 20 MG TAB PO SCH (20:28)
[2017-08-13] MEDS: SENNA 8.6 MG TAB PO SCH (20:32)
[2017-08-13] MEDS: TRAZODONE HCL 100 MG TAB PO SCH (21:08)
[2017-08-13 23:30] VITALS: BP 184/89; PULSE 49; TEMP 36.6; O2SAT 96
[2017-08-14 03:03] VITALS: BP 172/79
[2017-08-14] MEDS: CEFAZOLIN IV 2,000 MG in SYRINGE 0 ML IV SCH ×3 (04:01→19:38)
[2017-08-14] MEDS: HYDROCODONE/ACETAMI 10/325 TAB PO PRN ×3 (05:06→21:56)
[2017-08-14] MEDS: ACETAMINOPHEN 500 MG TAB PO SCH ×2 (05:48→14:00)
[2017-08-14] MEDS: KETOROLAC TROMETHAMINE 30 MG/ML VIAL IV. SCH ×2 (05:48→12:47)
[2017-08-14 06:09] LABS: HEMATOCRIT 38.6 % (42-52); MEAN CELL VOLUME 87.7 fL (80-100); MEAN CORPUSCULAR HEMOGLOBIN 30.2 pg (25-34); MEAN CORPUSCULAR HGB CONC 34.5 g/dl (32-36); MEAN PLATELET VOLUME 9.7 fL (7.4-10.4); PLATELET COUNT 198 K/uL (130-400); WHITE BLOOD COUNT 10.54 K/uL (4.8-10.8)
[2017-08-14 06:37] LABS: BUN/CREATININE RATIO 14.5 (10-20); CALCIUM 8.8 mg/dl (8.5-10.1); CREATININE 0.76 mg/dl (0.60-1.40); POTASSIUM 4.4 mmol/L (3.5-5.1)
--- NOTE | 2017-08-14 07:46 | Orthopedic Progress Note ---
Orthopedic Progress Note Date of Service Aug 14, 2017. Subjective Post OP Day: 2 Reports: feeling well, Denies: complaints Additional Notes: Patient seen this am, doing well, pain controlled, no acute issues. Objective NAD, AOx3 RLE: s/p AKA incision clean, dry, intact, compartments soft, drain intact, dressing changed, drain pulled Date Time Temp Pulse Resp B/P (MAP) Pulse Ox O2 Delivery O2 Flow Rate FiO2 08/14/17 03:03 172/79 (110) 08/13/17 23:35 Room Air 08/13/17 23:30 36.6 49 20 184/89 (120) 96 Room Air 08/13/17 15:40 Room Air 08/13/17 15:40 37.0 61 18 154/84 (107) 95 Room Air 08/13/17 11:36 37.1 49 18 139/79 (99) 94 Room Air 08/13/17 08:00 Room Air Laboratory Results 24 Hours: Test 08/14/17 05:47 Hematocrit 38.6 % Hemoglobin 13.3 g/dL Assessment & Plan Assessment: s/p AKA revision POD#2 Plan: -Picc line in place -Drain DC'd -Maintain dressing -IV abx - ancef -ID recs appreciated, Daptomycin and ertapenem -Pain controlled -AM labs - Hgb 13.3 -Follow up GS, cultures -DC planing, home with IV abx today 08/14/17
[2017-08-14 08:08] VITALS: BP 166/81; PULSE 57; TEMP 36.8; O2SAT 96
[2017-08-14] MEDS: PANTOprazole SOD 40 MG TAB PO SCH (08:42)
[2017-08-14] MEDS: MULTIVITAMIN TAB PO SCH (08:42)
[2017-08-14] MEDS: DOCUSATE SODIUM 100 MG CAP PO SCH ×2 (08:42→19:32)
[2017-08-14] MEDS: DOXYCYCLINE HYCLATE 100 MG CAP PO SCH ×2 (08:42→21:54)
[2017-08-14] MEDS: HYDROmorphone INJ 1 MG/ML SYR IV PRN ×3 (08:46→19:43)
[2017-08-14] MEDS ORDERED: ERTA1INJ IV (11:05)
[2017-08-14] MEDS ORDERED: HYDR-5688 PO (11:05)
[2017-08-14] MEDS ORDERED: DAPT500I IV (11:05)
--- NOTE | 2017-08-14 11:17 | Discharge Instructions ---
Discharge Instructions Date of Service Aug 14, 2017. Admission Reason for Admission: Right Knee Osteomyelitis, Other Complications Of A Discharge Discharge Diagnosis / Problem: S/P Right AKA Discharge Goals Goal(s): Decrease discomfort, Improve function Activity Recommendations Activity Limitations: per Instructions/Follow-up section . Instructions / Follow-Up Instructions / Follow-Up ACTIVITY RECOMMENDATIONS: * Non-weightbearing and use of crutches. * Keep elevated, use ice, take pain medications as prescribed. SPECIAL CARE INSTRUCTIONS: * Some drainage onto the dressing is normal and is no cause for alarm; if this occurs, you can perform a dry dressing change. * Some swelling is natural especially after up moving around. When resting, keep your leg elevated above the level of your heart. * Take IV antibiotics as prescribed. * Call the doctor's office at if you notice increased drainage, fever over 101 degrees F. or severe constant pain. BANDAGE: * Leave bandage in place until your follow up appointment * Keep bandage dry at all times. * May perform dressing changes if you notice drainage around the bandage. FOLLOW UP VISIT: If appointment is not already scheduled: Please call [facility] to make a follow-up appointment with Dr. Lamb or his PA-C 10-14 days after your surgery at . Please follow up with infectious disease 2 weeks after surgery Current Hospital Diet Patient's current hospital diet: Regular Diet Discharge Diet Recommended Diet: Regular Diet Procedures Procedures Performed: 1. Right Knee Lower Extremity Revision Above the Knee Amputation; 2. Application Antibiotic Stimulan Beads 3. Debridement Ulcer Right LE Pending Studies Studies pending at discharge: no Laboratory Results Hemoglobin A1c Test 08/08/17 10:22 Range/Units Estimated Average Glucose 117 mg/dl Hemoglobin A1c 5.7 H 4.5-5.6 % Medical Emergencies . Who to Call and When: Medical Emergencies: If at any time you feel your situation is an emergency, please call 911 immediately. . Non-Emergent Contact Non-Emergency issues call your: Surgeon Call Non-Emergent contact if: temperature is above 101.5, your pain is worsening, wound has increased drainage, wound has increased redness . "Provider Documentation" section prepared by Jamie Arreola. . VTE Core Measure Inpt VTE Proph given/why not?: Treatment not indicated [place] Drug Monitoring Program Search Results: patient reviewed within database, no issues identified
[2017-08-14 15:46] VITALS: BP 176/88; PULSE 57; TEMP 36.9; O2SAT 95
[2017-08-14 19:16] VITALS: BP 150/83; PULSE 56; TEMP 36.9; O2SAT 93
[2017-08-14] MEDS: SENNA 8.6 MG TAB PO SCH (19:32)
[2017-08-14] MEDS: TRAZODONE HCL 100 MG TAB PO SCH (21:54)
[2017-08-14] MEDS: SIMVASTATIN 20 MG TAB PO SCH (21:54)
[2017-08-14 23:21] VITALS: BP 143/85; PULSE 56; TEMP 36.8; O2SAT 94
[2017-08-15] MEDS: CEFAZOLIN IV 2,000 MG in SYRINGE 0 ML IV SCH (04:39)
[2017-08-15 05:58] LABS: HEMATOCRIT 40.4 % (42-52); MEAN CELL VOLUME 86.9 fL (80-100); MEAN CORPUSCULAR HEMOGLOBIN 29.7 pg (25-34); MEAN CORPUSCULAR HGB CONC 34.2 g/dl (32-36); MEAN PLATELET VOLUME 9.4 fL (7.4-10.4); PLATELET COUNT 194 K/uL (130-400); RED BLOOD COUNT 4.65 M/uL (4.7-6.1); WHITE BLOOD COUNT 7.42 K/uL (4.8-10.8)
[2017-08-15 07:29] VITALS: BP 163/94; PULSE 58; TEMP 36.6; O2SAT 96
[2017-08-15] MEDS: HYDROmorphone INJ 1 MG/ML SYR IV PRN (07:29)
[2017-08-15] MEDS: DOCUSATE SODIUM 100 MG CAP PO SCH ×2 (07:35→20:48)
[2017-08-15] MEDS: PANTOprazole SOD 40 MG TAB PO SCH (07:37)
[2017-08-15] MEDS: DOXYCYCLINE HYCLATE 100 MG CAP PO SCH ×2 (07:37→21:32)
[2017-08-15] MEDS: MULTIVITAMIN TAB PO SCH (07:38)
--- NOTE | 2017-08-15 07:39 | Orthopedic Progress Note ---
Orthopedic Progress Note Date of Service Aug 15, 2017. Subjective Post OP Day: 3 Reports: feeling well, pain controlled w PO medications, Denies: complaints, chest pain, SOB, nausea / vomiting Objective N/V intact, capillary refill less than 2 sec., dressing C/D/I, incision C/D/I, A &O x3 Right AKA stump with well approximated flap. Minimal bleeding. No erythema throughout. No swelling. Dressing changed today. Date Time Temp Pulse Resp B/P (MAP) Pulse Ox O2 Delivery O2 Flow Rate FiO2 08/15/17 07:29 36.6 58 16 163/94 (117) 96 Room Air 08/14/17 23:21 36.8 56 16 143/85 (104) 94 Room Air 08/14/17 20:00 Room Air 08/14/17 19:16 36.9 56 16 150/83 (105) 93 Room Air 08/14/17 15:46 36.9 57 16 176/88 (117) 95 Room Air 08/14/17 15:14 Room Air 08/14/17 08:08 36.8 57 18 166/81 (109) 96 Room Air 08/14/17 08:00 Room Air Laboratory Results 24 Hours: Test 08/15/17 05:33 Hematocrit 40.4 % Hemoglobin 13.8 g/dL Assessment & Plan Assessment: s/p AKA revision POD#3 Plan: -Picc line in place -Drain DC'd -Maintain dressing -IV abx - ancef -ID recs appreciated, Daptomycin and ertapenem -Pain controlled -AM labs - Hgb 13.3 -Follow up GS, cultures -DC planing, home today if home IV tx's are set up Inhouse Planning Pain Management: [place] Discharge Planning Discharge Planning: home with home health Pain Management: [place]
--- NOTE | 2017-08-15 07:41 | Anesthesiology Progress Note ---
Anesthesia Post Op Note Date & Time Aug 15, 2017 at 07:40 Vital Signs Vital Signs Past 12 Hours Date Time Temp Pulse Resp B/P (MAP) Pulse Ox O2 Delivery O2 Flow Rate FiO2 08/15/17 07:29 36.6 58 16 163/94 (117) 96 Room Air 08/14/17 23:21 36.8 56 16 143/85 (104) 94 Room Air 08/14/17 20:00 Room Air Notes Mental Status: alert / awake / arousable, participated in evaluation Pt Amnestic to Procedure: Yes Nausea / Vomiting: adequately controlled Pain: adequately controlled Airway Patency, RR, SpO2: stable & adequate BP & HR: stable & adequate Hydration State: stable & adequate Anesthetic Complications: no major complications apparent
[2017-08-15 09:24] VITALS: BP 146/73; PULSE 58
[2017-08-15] MEDS: HYDROCODONE/ACETAMI 10/325 TAB PO PRN ×3 (10:08→23:50)
--- NOTE | 2017-08-15 10:30 | Infectious Disease Progress Nt ---
Progress Note Date of Service Aug 15, 2017. Subjective Pt evaluation today including: conversation w/ patient, physical exam, chart review, lab review, review of studies, conversation w/ real estate consultant, review of inpatient medication list Patient offering no new complaints today. Remains afebrile. Tolerating antibiotics without apparent difficulty. Home therapy being arranged. Operative cultures growing coagulase-negative Staph. All Other Systems: Reviewed and Negative Medications Current Inpatient Medications Medications (Trade) Dose Ordered Sig/Nancy Route Start Time Stop Time Status Last Admin Dose Admin Albuterol (Ventolin Hfa Inhaler) 2 puffs Q4 PRN INH 08/12/17 15:15 09/11/17 15:14 Indomethacin (Indocin Cap) 25 mg BID PRN PO 08/12/17 15:15 09/11/17 15:14 Ranitidine HCl (zANTac TAB) 150 mg DAILY PRN PO 08/12/17 15:15 09/11/17 15:14 08/12/17 22:12 150 MG Simvastatin (Zocor Tab) 20 mg QPM PO 08/12/17 21:00 09/11/17 20:59 08/14/17 21:54 20 MG Trazodone HCl (Desyrel Tab) 100 mg HS PO 08/12/17 21:00 09/11/17 20:59 08/14/17 21:54 100 MG Magnesium Hydroxide (Milk Of Magnesia Susp) 30 ml Q6H PRN PO 08/12/17 15:15 09/11/17 15:14 Bisacodyl (Dulcolax Supp) 10 mg DAILY PRN [place] 08/12/17 15:15 09/11/17 15:14 Sodium Biphosphate/ Sodium Phosphate (Fleet Enema) 132 ml DAILY PRN [place] 08/12/17 15:15 09/11/17 15:14 Senna (Senokot Tab) 17.2 mg HS PO 08/12/17 21:00 09/11/17 20:59 Docusate Sodium (coLACE CAP) 100 mg BID PO 08/12/17 21:00 09/11/17 20:59 Diphenhydramine HCl (Benadryl Cap) 25 mg Q8H PRN PO 08/12/17 15:15 09/11/17 15:14 Al Hydrox/Mg Hydrox/Simethicone (Maalox Max Susp) 15 ml Q4H PRN PO 08/12/17 15:15 09/11/17 15:14 Zolpidem Tartrate (Ambien Tab) 5 mg HSZ PRN PO 08/12/17 15:15 09/11/17 15:14 Multivitamins (Multivitamin Tab) 1 tab QAM PO 08/13/17 09:00 09/12/17 08:59 08/15/17 07:38 1 TAB Ondansetron HCl (Zofran Inj) 4 mg Q6H PRN IV 08/12/17 15:15 09/11/17 15:14 Pantoprazole Sodium (Protonix Tab) 40 mg QAM PO 08/13/17 09:00 09/12/17 08:59 08/15/17 07:37 40 MG Doxycycline Hyclate (Vibramycin Cap) 100 mg BID PO 08/12/17 21:00 08/22/17 20:59 08/15/17 07:37 100 MG Hydromorphone HCl (Dilaudid Inj) 1 mg Q1HWA PRN IV 08/12/17 15:15 08/26/17 15:14 08/15/17 07:29 1 MG Acetaminophen/ Hydrocodone Bitart ([place] 10/325 Tab) 1 tab for pain rated 1-5 2 t... Q6 PRN PO 08/12/17 15:15 08/26/17 15:14 08/15/17 10:08 2 TAB Cefazolin Sodium 2000 mg/Syringe 10 ml @ 2.5 mls/min Q8H IV 08/13/17 12:00 08/15/17 11:59 08/15/17 04:39 2.5 MLS/MIN Heparin Sodium (Porcine) (Heparin 10 Unit/ ml 5 ml Flush) 5 ml PRN PRN FLUSH 08/13/17 19:30 09/12/17 19:29 08/15/17 07:31 5 ML Objective Vital Signs Date Time Temp Pulse Resp B/P (MAP) Pulse Ox O2 Delivery O2 Flow Rate FiO2 08/15/17 09:24 58 16 146/73 (97) 08/15/17 07:30 Room Air 08/15/17 07:29 36.6 58 16 163/94 (117) 96 Room Air 08/14/17 23:21 36.8 56 16 143/85 (104) 94 Room Air 08/14/17 20:00 Room Air 08/14/17 19:16 36.9 56 16 150/83 (105) 93 Room Air 08/14/17 15:46 36.9 57 16 176/88 (117) 95 Room Air 08/14/17 15:14 Room Air Physical Exam General Appearance: WD/WN, no apparent distress Eyes: normal inspection, EOMI, sclerae normal ENT: normal ENT inspection, pharynx normal Neck: supple, no adenopathy, thyroid normal, trachea midline Respiratory/Chest: chest non-tender, lungs clear, normal breath sounds, no respiratory distress Cardiovascular: regular rate, rhythm, no gallop, no murmur Abdomen: normal bowel sounds, non tender, soft, no organomegaly Extremities: non-tender, no calf tenderness, normal capillary refill Neurologic/Psychiatric: alert, oriented x 3 Skin: normal color, no rash, + pertinent finding (Surgical dressing intact) Lymphatic: no adenopathy Laboratory Results RUN DATE: 08/14/17 [facility] LAB PAGE 1 RUN TIME: 1501 Specimen Inquiry [id number] LOC: RIKA # : [id number] AGE/SX: 56/M ROOM: [facility] REG : 08/12/[address]: Roderick Lamb D.O. : 1960 BED: 1 DIS : STATUS: ADM IN TLOC: SPEC #: [id number] MIGUELINA: 08/12/17 STATUS: GUI SALCDIO #: [id number] RECD: 08/12/[address]: Roderick Lamb D.O. SOURCE: ASP-OTHER ENTR: 08/12/[address]: Rey Simon D.O. SPDESC: LEG RL ORDERED: AER/MAGDALENA CULTSMR Procedure Result Verified Site GRAM STAIN Final 08/13/17 RESULT RARE WBCs SEEN NO ORGANISMS SEEN OR AER/MAGDALENA CULT Preliminary 08/14/17 Organism 1 COAG NEG STAPHYLOCOCCUS QUANITY RARE SENS SENSITIVITY TO FOLLOW ANAS NO ANAEROBES ISOLATED. Last 24 Hours Test 08/15/17 05:33 White Blood Count 7.42 K/uL Red Blood Count 4.65 M/uL Hemoglobin 13.8 g/dL Hematocrit 40.4 % Mean Corpuscular Volume 86.9 fL Mean Corpuscular Hemoglobin 29.7 pg Mean Corpuscular Hemoglobin Concent 34.2 g/dl RDW Standard Deviation 40.4 fL RDW Coefficient of Variation 12.6 % Platelet Count 194 K/uL Mean Platelet Volume 9.4 fL Assessment and Plan 56 yo male with chronic osteomyelitis of distal right femur as well as non- healing ulceration of AKA stump now s/p debridement of infected bone and stump revision and placement of antibiotic beads. Operative cultures growing coagulase-negative Staph. Patient hopefully will to be discharged home on daptomycin and ertapenem. Clinical significance of coag-negative staph unclear , and would certainly treat for polymicrobial infection given chronicity of problems. Would like to see in the office in 2-3 weeks. Patient to be followed with CPK levels and inflammatory markers while on antibiotic therapy.
[2017-08-15] MEDS ORDERED: DAPTOmycin IV 325 MG in SODIUM CHLORIDE 0.9% 50ML 50 ML IV ONE (11:45)
[2017-08-15 11:49] VITALS: BP 146/73; PULSE 58; TEMP 36.6; O2SAT 96
[2017-08-15] MEDS ORDERED: ERTAPENEM IV 1 GM in SODIUM CHLOR 0.9% AD-VAN 50ML 50 ML IV SCH (13:00)
[2017-08-15] MEDS ORDERED: DAPTOmycin IV 325 MG in SYRINGE 0 ML IV SCH (13:30)
[2017-08-15 19:08] VITALS: BP 152/87; PULSE 64; TEMP 37; O2SAT 97
[2017-08-15] MEDS: SENNA 8.6 MG TAB PO SCH (20:48)
[2017-08-15] MEDS: SIMVASTATIN 20 MG TAB PO SCH (21:32)
[2017-08-15] MEDS: TRAZODONE HCL 100 MG TAB PO SCH (21:32)
[2017-08-15 23:00] VITALS: BP 149/79; PULSE 65; TEMP 36.7; O2SAT 95
[2017-08-16 05:34] LABS: HEMATOCRIT 41.6 % (42-52); MEAN CELL VOLUME 86.3 fL (80-100); MEAN CORPUSCULAR HEMOGLOBIN 28.8 pg (25-34); MEAN CORPUSCULAR HGB CONC 33.4 g/dl (32-36); MEAN PLATELET VOLUME 9.3 fL (7.4-10.4); PLATELET COUNT 191 K/uL (130-400); RED BLOOD COUNT 4.82 M/uL (4.7-6.1); WHITE BLOOD COUNT 7.74 K/uL (4.8-10.8)
[2017-08-16] MEDS: HYDROmorphone INJ 1 MG/ML SYR IV PRN (07:25)
[2017-08-16 07:27] VITALS: BP 171/88; PULSE 62; TEMP 36.7; O2SAT 96
[2017-08-16] MEDS: DOCUSATE SODIUM 100 MG CAP PO SCH (08:32)
[2017-08-16] MEDS: DOXYCYCLINE HYCLATE 100 MG CAP PO SCH (08:32)
[2017-08-16] MEDS: PANTOprazole SOD 40 MG TAB PO SCH (08:32)
[2017-08-16] MEDS: MULTIVITAMIN TAB PO SCH (08:32)
[2017-08-16] MEDS ORDERED: NURSING VERBAL MED ORDER ONE (09:45)
[2017-08-16] MEDS ORDERED: DAPTOmycin IV 325 MG in SYRINGE 0 ML IV STA (10:29)
[2017-08-16] MEDS ORDERED: ERTAPENEM IV 1 GM in SODIUM CHLOR 0.9% AD-VAN 50ML IV STA (10:30)
[2017-08-16] MEDS: HYDROCODONE/ACETAMI 10/325 TAB PO PRN (10:34)
--- NOTE | 2017-08-16 11:56 | Orthopedic Progress Note ---
Orthopedic Progress Note Date of Service Aug 16, 2017. Subjective Reports: feeling well, Denies: chest pain, SOB, nausea / vomiting, light headedness, calf pain Objective A&O x3 Patient is dressed and ready to go. Had dressing change yesterday. Date Time Temp Pulse Resp B/P (MAP) Pulse Ox O2 Delivery O2 Flow Rate FiO2 08/16/17 07:27 36.7 62 19 171/88 (115) 96 Room Air 08/16/17 07:15 Room Air 08/15/17 23:20 Room Air 08/15/17 23:00 36.7 65 18 149/79 (102) 95 Room Air 08/15/17 19:08 37.0 64 18 152/87 (108) 97 Room Air 08/15/17 18:10 Room Air Laboratory Results 24 Hours: Test 08/16/17 05:19 Hematocrit 41.6 % Hemoglobin 13.9 g/dL Assessment & Plan Assessment: s/p AKA revision POD#4 Plan: -Picc line in place -Drain DC'd -Maintain dressing -IV abx - ancef -ID recs appreciated, Daptomycin and ertapenem -Pain controlled -AM labs - Hgb 13.3 -Follow up GS, cultures -DC planing- PATIENT IS ALL SET UP FOR HIS OUTPATIENT ABX. CLEARED FOR DC TODAY. Inhouse Planning Pain Management: [place] Discharge Planning Discharge Planning: home with home health Pain Management: [place]
--- NOTE | 2017-08-18 15:01 | Discharge Summary ---
Orthopedic Discharge Summary Admission Date/Reason Aug 12, 2017 at 15:20 Right Knee Osteomyelitis, Other Complications Of A. Discharge Date/Disposition Aug 15, 2017 Home with services Diagnosis Principal Diagnosis: right distal femur osteomyelitis Right LE ulceration at AKA stump Procedure(s) Performed 1. Revision right above knee amputation. 2. Debridement ulceration, right lower extremity. 3. Implantation antibiotic Stimulan beads. Consultations Infectious disease Internal medicine Medication Reconciliation New Medications: Daptomycin (Daptomycin) 500 Mg Inj 325 MG IV Q24H for 42 Days Ertapenem Sodium (Invanz) 1 Gm Inj 1 GM IV QD for 42 Days, VIAL Hydrocodone/Acetaminophen 5MG/325MG ([place] 5MG/325MG) Tab 1-2 TABS PO Q4-6H PRN for Pain, #60 TAB Continued Medications: Albuterol (Ventolin Hfa) 60 Puffs/5400 Mcg Aers 2 PUFF INH PRN for prn Hydrocodone/Acetaminophen 10MG/325MG ([place] 10MG/325MG) Tab 1-2 TABS PO Q6H PRN for Pain, TAB PRN PAIN Indomethacin (Indocin) 25 Mg Cap 25 MG PO PRN for prn, CAP Ranitidine (Zantac) 150 Mg Tab 150 MG PO DAILY PRN for prn, TAB Simvastatin (Zocor) 20 Mg Tab 20 MG PO QPM, TAB Trazodone Hcl (Trazodone) 100 Mg Tab 100 MG PO HS, TAB Admission Physical Exam As per Admitting History & Physical. Hospital Course Patient was admitted on 11.3.17 and underwent the above noted procedure. He was followed over the next 4 days with dressing changes on POD #2 and #3. His cultures were finalized and home IV antibiotic tx determined. His PICC line was in place. He was then d/c'd home on POD #4 after a dose of Daptomycin and Invanz and the home IV tx was set up. Discharge Instructions Please refer to the electronic Patient Visit Report (Discharge Instructions) for additional information.
== END 2017-08-16 12:36 | disposition home health service (06) | DRG 464 ==
LOC: C.ACU 10:38 → C.MSW 15:20 → ENRESERV 16:17
PROVIDERS: ADMIT Orthopaedic Surgery Sports Medicine; ATTEND Orthopaedic Surgery Sports Medicine
PROC: 0Y6C0Z3 Detachment at Right Upper Leg, Low, Open Approach (ICD-10-PCS; principal; 2017-08-12 12:45)
PROC: 0JBL0ZZ Excision of Right Upper Leg Subcutaneous Tissue and Fascia, Open Approach (ICD-10-PCS; principal; 2017-08-12 12:45)
PROC: 3E0V329 Introduction of Other Anti-infective into Bones, Percutaneous Approach (ICD-10-PCS; principal; 2017-08-12 12:45)
PROC: 02HV33Z Insertion of Infusion Device into Superior Vena Cava, Percutaneous Approach (ICD-10-PCS; 2017-08-13)
DX: T87.42 Infection of amputation stump, left upper extremity (principal); M86.651 Other chronic osteomyelitis, right thigh; T87.89 Other complications of amputation stump; L97.129 Non-pressure chronic ulcer of left thigh with unspecified severity; Z89.611 Acquired absence of right leg above knee; J44.9 Chronic obstructive pulmonary disease, unspecified; K21.9 Gastro-esophageal reflux disease without esophagitis; F17.200 Nicotine dependence, unspecified, uncomplicated; E78.5 Hyperlipidemia, unspecified; M1A.9XX0 Chronic gout, unspecified, without tophus (tophi); B95.8 Unspecified staphylococcus as the cause of diseases classified elsewhere; Y92.019 Unspecified place in single-family (private) house as the place of occurrence of the external cause; Y83.5 Amputation of limb(s) as the cause of abnormal reaction of the patient, or of later complication, without mention of misadventure at the time of the procedure